=== PATIENT | female | born 1955 | race Caucasian/White ===

== ENCOUNTER 2019-08-18 18:11 | Emergency (ER) | payer MEDICARE, BC ==
[~2019-08-18] VITALS: Ht 167.6 cm; Wt 72.2 kg
[2019-08-18 18:20] VITALS: BP 135/69
[2019-08-18 18:41] LABS: BASOPHILS % (AUTO) 0.3 % (0-1); EOSINOPHILS # (AUTO) 0.2 X10'3 (0-0.9); EOSINOPHILS % (AUTO) 1.3 % (0-6); HEMATOCRIT 37.6 % (35.0-45.0); HEMOGLOBIN 12.2 g/dl (12.0-16.0); LYMPHOCYTES # (AUTO) 2.5 X10'3 (1.1-4.8); LYMPHOCYTES % (AUTO) 18.6 % (21-51); MEAN CORPUSCULAR HGB CONC 32.4 g/dL (33.0-36.5); MEAN CORPUSCULAR VOLUME 83.4 FL (78-98); MEAN PLATELET VOLUME 9.2 FL (7.4-10.4); MONOCYTES % (AUTO) 7.3 % (2-12); NEUTROPHILS # (AUTO) 9.6 X10'3 (1.8-7.7); NEUTROPHILS % (AUTO) 72.5 % (42-75); PLATELET COUNT 310 X10'3 (140-440); RED BLOOD COUNT 4.51 X10'6 (4.20-5.60); RED CELL DISTRIBUTION WIDTH 14.5 % (11.5-14.5); WHITE BLOOD COUNT 13.3 X10'3 (4.5-11.0)
[2019-08-18 18:57] LABS: ALANINE AMINOTRANSFERASE 23 U/L (12-78); ALBUMIN 3.5 G/DL (3.4-5.0); ALKALINE PHOSPHATASE 131 IU/L (46-116); ANION GAP 6 (8-16); ASPARTATE AMINO TRANSFERASE 20 U/L (10-37); BILIRUBIN,TOTAL 0.2 MG/DL (0.1-1.0); BLOOD UREA NITROGEN 13 MG/DL (7-18); BUN/CREATININE RATIO 14.6 (6.6-38.0); CALCIUM 8.7 MG/DL (8.5-10.1); CHLORIDE 107 MMOL/L (99-107); CREATININE 0.89 MG/DL (0.40-0.90); GLUCOSE 90 MG/DL (70-104); POTASSIUM 3.6 MMOL/L (3.5-5.1); SODIUM 141 MMOL/L (135-145); TOTAL CARBON DIOXIDE 28.5 MMOL/L (24-32); eGFR 64 ML/MIN
[2019-08-18] MEDS ORDERED: ketorolac tromethamine 15mg/ml inj. IM ONE (19:40)
[2019-08-18] MEDS ORDERED: orphenadrine citrate 60mg/2ml inj. IM ONE (19:40)
[2019-08-18] MEDS ORDERED: METH-360 PO (19:42)
[2019-08-18] MEDS ORDERED: NAPR-56 PO (19:42)
== END 2019-08-18 20:05 | disposition home or self-care (01) ==
LOC: ER 18:12
DX: M54.41 Lumbago with sciatica, right side (principal); M25.551 Pain in right hip; R07.89 Other chest pain; G89.29 Other chronic pain; Z79.899 Other long term (current) drug therapy
CPT/HCPCS: 36415; 71045; 80053; 84484; 85025; 93005; 96372; 99284; J1885; J2360

== ENCOUNTER 2022-04-29 08:33 | Emergency (ER) | payer BC, MEDICARE ==
[~2022-04-29] VITALS: Ht 167.6 cm; Wt 62.7 kg
[~2022-04-29 08:33] MED LIST: METH-360 PO
[2022-04-29 08:37] VITALS: BP 113/79
[2022-04-29] MEDS ORDERED: HYDROcodone/acetaminophen 10/325mg tab PO ONE (09:45)
[2022-04-29] MEDS ORDERED: LIDOcaine 1% 30ml preserv. free vial IJ STA (10:06)
[2022-04-29] MEDS ORDERED: ondansetron 4mg rapidly disintigrating tab PO ONE (11:10)
== END 2022-04-29 11:54 | disposition home or self-care (01) ==
LOC: ER 08:34
DX: S52.502A Unspecified fracture of the lower end of left radius, initial encounter for closed fracture (principal); S52.602A Unspecified fracture of lower end of left ulna, initial encounter for closed fracture; M25.532 Pain in left wrist; G89.29 Other chronic pain; Z79.899 Other long term (current) drug therapy; W19.XXXA Unspecified fall, initial encounter; Y93.89 Activity, other specified; Y92.89 Other specified places as the place of occurrence of the external cause; Y99.8 Other external cause status
CPT/HCPCS: 25605; 73100; 73110; 99284

== ENCOUNTER 2023-10-01 17:58 | Emergency (ER) | payer MEDICARE ==
[~2023-10-01] VITALS: Ht 167.6 cm; Wt 71.8 kg
[2023-10-01 18:03] VITALS: BP 154/81; PULSE 90; RESP 18; TEMP 97.8; O2SAT 100
[2023-10-01] MEDS ORDERED: NAPR-56 PO (19:30)
== END 2023-10-01 19:50 | disposition home or self-care (01) ==
LOC: ER 17:59
DX: S92.531A Displaced fracture of distal phalanx of right lesser toe(s), initial encounter for closed fracture (principal); Z79.899 Other long term (current) drug therapy; W19.XXXA Unspecified fall, initial encounter; Y93.89 Activity, other specified; Y92.89 Other specified places as the place of occurrence of the external cause; Y99.8 Other external cause status
CPT/HCPCS: 73630; 99283; L3260